=== PATIENT | male | born 1945 | race Hispanic/Latino ===

== ENCOUNTER 2018-09-07 15:44 | Emergency (ER) | payer MEDICARE ==
[2018-09-07 17:21] LABS: APPEARANCE,URINE Clear (CLEAR); BILIRUBIN,URINE Negative (NEGATIVE); COLOR,URINE Yellow (YELLOW); GLUCOSE, URINE (UA) Negative (NEGATIVE); KETONES,URINE Negative (NEGATIVE); LEUKOCYTE ESTERASE ,URINE Negative (NEGATIVE); NITRATE,URINE Negative (NEGATIVE); OCCULT BLOOD,URINE Negative (NEGATIVE); PH,URINE 5.5 (5.0-8.0); PROTEIN,URINE Negative (NEGATIVE)
== END 2018-09-07 16:51 | disposition home or self-care (01) ==
LOC: EDH 15:44
DX: K42.9 Umbilical hernia without obstruction or gangrene (principal); I10 Essential (primary) hypertension; M19.90 Unspecified osteoarthritis, unspecified site
CPT/HCPCS: 81003

== ENCOUNTER 2022-01-16 11:15 | Emergency (ER) | payer MEDICARE ==
[~2022-01-16] VITALS: Ht 162.6 cm; Wt 81.6 kg
[2022-01-16 12:01] LABS: BASOPHILS % (AUTO) 0.5 % (0.0-5.0); EOSINOPHILS % (AUTO) 11.3 % (0.0-8.0); HEMATOCRIT 36.7 % (42-54); MEAN CORPUSCULAR HEMOGLOBIN 29.4 pg (27.0-33.0); MEAN CORPUSCULAR HGB CONC 33.5 g/dL (32.0-36.0); MEAN CORPUSCULAR VOLUME 87.6 fL (79-99); MONOCYTES % (AUTO) 8.3 % (3.0-13.0); NEUTROPHILS % (AUTO) 61.6 % (40.0-77.0); PLATELET COUNT (AUTO) 224 K/uL (130-400); RED BLOOD CELL COUNT(AUTO) 4.19 MIL/uL (4.50-6.20); RED CELL DISTRIBUTION WIDTH 13.4 % (11.0-15.5); WHITE BLOOD COUNT (AUTO) 6.2 K/uL (4.8-10.8)
[2022-01-16 12:06] LABS: CREATININE 0.7 mg/dL (0.5-1.5); POTASSIUM 3.8 mmol/L (3.5-5.1)
[2022-01-16 12:11] LABS: ALBUMIN 3.5 g/dL (3.5-5.0)
[2022-01-16 12:33] LABS: B-TYPE NATRIURETIC PEPTIDE 97 pg/mL (0-100)
[2022-01-16 12:40] LABS: APPEARANCE,URINE CLEAR (CLEAR); BILIRUBIN,URINE NEGATIVE (NEGATIVE); COLOR,URINE COLORLESS (YELLOW); GLUCOSE, URINE (UA) NEGATIVE (NEGATIVE); KETONES,URINE NEGATIVE (NEGATIVE); LEUKOCYTE ESTERASE ,URINE NEGATIVE Leu/uL (NEGATIVE); NITRATE,URINE NEGATIVE (NEGATIVE); OCCULT BLOOD,URINE NEGATIVE (NEGATIVE); PROTEIN,URINE NEGATIVE (NEGATIVE); UROBILINOGEN,URINE 0.2 mg/dL (0.2-1.0)
[2022-01-16 14:09] VITALS: BP 152/84
== END 2022-01-16 14:15 | disposition home or self-care (01) ==
LOC: EDH 11:15
DX: M79.89 Other specified soft tissue disorders (principal); R60.0 Localized edema; M19.90 Unspecified osteoarthritis, unspecified site; I10 Essential (primary) hypertension; Z90.89 Acquired absence of other organs
CPT/HCPCS: 36415; 71045; 80053; 81003; 83880; 84484; 85025; 93005; 93970

== ENCOUNTER 2023-08-09 10:03 | Emergency (ER) | payer MEDICARE ==
[~2023-08-09] VITALS: Ht 162.6 cm; Wt 54.4 kg
[2023-08-09 11:40] LABS: BASOPHILS # (AUTO) 0.01 K/uL (0.00-0.20); BASOPHILS % (AUTO) 0.2 % (0.0-5.0); EOSINOPHILS # (AUTO) 0.69 K/uL (0.00-0.70); EOSINOPHILS % (AUTO) 11.7 % (0.0-8.0); HEMATOCRIT 36.5 % (42-54); IMMATURE GRANULOCYTE ABSOLUTE 0.01 K/uL (0-1); LYMPHOCYTES # (AUTO) 1.3 K/uL (1.0-4.8); LYMPHOCYTES % (AUTO) 21.6 % (21.0-51.0); MEAN CORPUSCULAR HEMOGLOBIN 29.9 pg (27.0-33.0); MEAN CORPUSCULAR HGB CONC 34.5 g/dL (32.0-36.0); MEAN CORPUSCULAR VOLUME 86.5 fL (79-99); MONOCYTES # (AUTO) 0.4 K/uL (0.1-1.0); MONOCYTES % (AUTO) 6.6 % (3.0-13.0); NEUTROPHILS # (AUTO) 3.5 K/uL (1.8-7.7); NEUTROPHILS % (AUTO) 59.7 % (40.0-77.0); PLATELET COUNT (AUTO) 193 K/uL (130-400); RED BLOOD CELL COUNT(AUTO) 4.22 MIL/uL (4.50-6.20); RED CELL DISTRIBUTION WIDTH 13.4 % (11.0-15.5); WHITE BLOOD COUNT (AUTO) 5.9 K/uL (4.8-10.8)
[2023-08-09 11:45] LABS: CREATININE 0.6 mg/dL (0.5-1.3); POTASSIUM 4.1 mmol/L (3.5-5.1)
[2023-08-09] MEDS: HYDROCODONE/ACETAMINOPHEN 5/325 MG TAB PO ONE (12:14)
[2023-08-09] MEDS: GABAPENTIN 300 MG CAPSULE PO SCH (12:14)
[2023-08-09] MEDS: PREDNISONE 20 MG TABLET PO ONE (12:14)
[2023-08-09] MEDS ORDERED: GABA300C PO (12:33)
[2023-08-09] MEDS ORDERED: IBUP-2070 PO (12:33)
[2023-08-09 12:34] VITALS: BP 151/83; PULSE 68; RESP 18; O2SAT 100
[2023-08-09 13:09] LABS: EOSINOPHILS % (MANUAL) 13 % (1-6); LYMPHOCYTES % (MANUAL) 22 % (22-44); MAN.DIFF COMMENT-IMPRESSION MANUAL DIFFERENTIAL; MONOCYTES % (MANUAL) 11 % (2-9); PLATELET MORPHOLOGY COMMENT ADEQUATE; REACTIVE LYMPHOCYTES 1 % (0-0); SEGMENTED NEUTROPHILS % 53 % (40-70); TOTAL CELLS COUNTED 100
== END 2023-08-09 12:46 | disposition home or self-care (01) ==
LOC: EDH 10:03
DX: M19.90 Unspecified osteoarthritis, unspecified site (principal); M25.561 Pain in right knee; G62.9 Polyneuropathy, unspecified; I10 Essential (primary) hypertension; M79.661 Pain in right lower leg; Z90.49 Acquired absence of other specified parts of digestive tract
CPT/HCPCS: 36415; 80048; 85025; 93971

== ENCOUNTER → 2024-10-16 | Outpatient (CLI) | payer MEDICARE, MEDICAID ==
[~2024-10-16] MED LIST: GABA300C PO; IBUP-2070 PO
--- NOTE | 2024-10-16 15:06 | HMCIMG ---
Exam Type: US ARTERIAL BILAT LOW EXT DUPL Clinical Information: ABN BRACHIAL INDEX , VENOUS STASIS OF RLE Comparison: None Findings: Diffuse mild bilateral plaque is identified. There are normal triphasic waveforms of the entire right lower extremity and the left side from the common femoral artery through the popliteal artery, as well as the posterior tibial artery and anterior tibial artery. There are biphasic waveforms of the left dorsalis pedis artery consistent with moderate nonocclusive hemodynamically significant disease. IMPRESSION: Peripheral vascular disease as noted.
--- NOTE | 2024-10-16 16:35 | HMCIMG ---
Exam Type: US VENOUS DOPPLER BILATERAL Clinical Information: ABN BRACHIAL INDEX , VENOUS STASIS OF RLE Comparison: None Findings: The examination shows normal deep venous system. There is normal compressibility at all levels. There is no intraluminal clot. There is no occlusion. Adequate response is obtained on augmentation. Significant reflux right thigh and knee GSV, and mid calf operations executive vein. Significant reflex also left mid calf operations executive vein. Impression: No evidence of DVT.
== END | disposition home or self-care (01) ==
LOC: RAH 13:34
PROVIDERS: ATTEND Family Medicine
DX: I83.019 Varicose veins of right lower extremity with ulcer of unspecified site (principal); I83.012 Varicose veins of right lower extremity with ulcer of calf; R68.89 Other general symptoms and signs; I73.9 Peripheral vascular disease, unspecified; I87.8 Other specified disorders of veins
CPT/HCPCS: 93925; 93970